=== PATIENT | female | born 1970 | race Caucasian/White ===

== ENCOUNTER 2016-11-17 08:07 | Day surgery (SDC) | payer OTHER ==
[2016-11-02 09:18] VITALS: BMI 30.8
[~2016-11-17 08:07] MED LIST: Acetaminophen-Codeine 300/30 mg Tab PO PRN; Dextrose 5%/0.45% NS 1,000 ML IV SCH; EPINEPHrine 1:1000 Nasal Sol(30mL) ONE; ceFAZolin IV 1 gm in Dextrose 1 GM/50 ML BAG IVPB ONE
[2016-11-17] MEDS ORDERED: EPINEPHrine 1:1000 Nasal Sol(30mL) ONE (10:22)
[2016-11-17] MEDS ORDERED: Propofol 10 mg/ml Inj (20 ML) ONE (11:35)
[2016-11-17] MEDS ORDERED: Midazolam 2 MG/2 ML VIAL ONE (11:35)
[2016-11-17] MEDS ORDERED: Rocuronium 10 mg/ml (5 ml) ONE (11:36)
[2016-11-17] MEDS ORDERED: Lactated Ringer's 1,000 ML IV ONE (11:40)
[2016-11-17] MEDS ORDERED: Neostigmine Methylsulfate 3mg/3ml Syringe IV ONE (12:58)
[2016-11-17] MEDS ORDERED: Lactated Ringer's 500 ML IV ONE (13:40)
[2016-11-17 17:23] VITALS: BP 112/62; PULSE 72; RESP 18; TEMP 97.9; O2SAT 100
--- NOTE | 2016-11-17 19:43 | OP ---
PROCEDURE DATE: 11/17/2016 PREOPERATIVE DIAGNOSES: Sinusitis, deviated septum, large turbinates. POSTOPERATIVE DIAGNOSES: Sinusitis, deviated septum, large turbinates. PROCEDURES: Septoplasty, bilateral endoscopic maxillary antrostomy, bilateral endoscopic ethmoidectomy, bilateral endoscopic inferior turbinate reduction, bilateral endoscopic middle turbinate reduction. 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 DESCRIPTION OF PROCEDURE: The patient was brought in room, placed in supine position. Anesthesia was initiated through an ET tube. Navigation was set up and used throughout the case in order to ensure that the skull base and orbit were not entered. Afrin-soaked pledgets were inserted into the nasal cavity and remained there for at least 5 minutes and removed. A Lantry's incision was made on the left septum and mucoperichondrial flap was raised. A vertical incision was made in the cartilage leaving a 1.5 cm anterior and superior strut and a mucoperichondrial flap was raised on the other side. Deviated portion of the cartilage and bone were removed using forceps and chisel. A quilting suture was used to suture the 2 flaps together and close the Jason's incision. Next, a 0 degree scope was inserted into the nasal cavity. The inferior turbinates were noted to be enlarged and reduced in size using scissors , going from an inferior to superior, anterior to posterior direction on both sides, first on the right, then on the left. Next, attention was turned to the left. The middle turbinate was medialized, uncinate process was medialized using a Bosler elevator and removed using forceps. A debrider was used to enter the ethmoid bulla inferomedially, going posteriorly to the basal lamella, then anteriorly and superiorly until the ethmoid bulla was removed. Next, the basal lamella was entered. Posterior ethmoid cells were entered and opened. Skull base was identified and followed anteriorly, all the way to the area of the anterior ethmoid air cells. Curved suction used and hooked up, navigation was used to locate the maxillary antrum which was noted to be stenosed and opened using forceps. Attention was turned to the other side. The middle turbinate was medialized. The uncinate process was medialized using a Bosler elevator and removed using forceps. The ethmoid bulla was entered inferomedially going posteriorly to the basal lamella, then anteriorly and superiorly until the ethmoid bulla was removed. The basal lamella was entered. Posterior ethmoid cells were entered and opened. The skull base was identified and followed anteriorly all the way to the area of the anterior ethmoid air cells. Curved suction hooked up to navigation was used to locate the maxillary antrum which was noted to be stenosed and opened using forceps. Bleeding was controlled using Afrin-soaked pledgets. Stents were placed. Splints were placed. The patient was taken off anesthesia and taken to recovery room in stable manner. Lev Patiño MD cc: [id number] TT: 11/17/2016 19:43:01 jess [email or web address]
== END 2016-11-17 17:20 | disposition home or self-care (01) ==
LOC: C.SDS 08:07
PROVIDERS: ATTEND Otolaryngology
DX: J32.0 Chronic maxillary sinusitis (principal); J34.2 Deviated nasal septum; J34.3 Hypertrophy of nasal turbinates
CPT/HCPCS: 30630; 30802; 31254; 31256; 88304; J0690; J1885; J2250; J2270; J2405; J2704; J2710; J3010; J7120